=== PATIENT | male | born 1970 | race Caucasian/White ===

== ENCOUNTER 2018-11-18 15:31 | Emergency (ER) | payer OTHER ==
[~2018-11-18] VITALS: Ht 165.1 cm; Wt 73.5 kg
[2018-11-18 15:39] VITALS: Ht 165.1 cm; Wt 73.5 kg
[2018-11-18 17:26] LABS: BASOPHIL % 0.3 % (0-2); PLATELET COUNT 175 x10^3mcL (130-400); RED CELL DISTRIBUTION WIDTH 13.9 % (11.5-14.5)
[2018-11-18 17:36] LABS: CALCIUM 7.5 mg/dL (8.5-10.1); CARBON DIOXIDE 23.7 mmol/L (21-32); CHLORIDE SERUM 99 mmol/L (98-107); GFR1 > 60 mL/min; GLUCOSE SERUM 289 mg/dL (74-106); POTASSIUM SERUM 3.5 mmol/L (3.5-5.1); SODIUM SERUM 131 mmol/L (136-145)
[2018-11-18 17:40] LABS: ALBUMIN 3.5 g/dL (3.4-5.0); ALKALINE PHOSPHATASE 98 U/L (46-116); ALT/SGPT 24 U/L (16-63); AST/SGOT 12 U/L (15-37); LIPASE 115 IU/L (73-393); TOTAL PROTEIN, SERUM 7.1 g/dL (6.4-8.2)
[2018-11-18 20:16] VITALS: BP 117/82
== END 2018-11-18 20:16 | disposition home or self-care (01) ==
LOC: ED 15:31
PROVIDERS: Emergency Medicine
DX: R51 Headache (principal); K52.9 Noninfective gastroenteritis and colitis, unspecified; E11.9 Type 2 diabetes mellitus without complications
CPT/HCPCS: J2765; J7030